=== PATIENT | female | born 1960 | race Caucasian/White ===

== ENCOUNTER 2017-11-25 09:13 | Observation (INO) | payer MEDICARE, OTHER ==
[~2017-11-25] VITALS: Ht 170.2 cm; Wt 158.8 kg
[~2017-11-25 09:13] MED LIST: ALLER CLEAR PO; ATEN100 PO; ATEN50 PO; ATOR40TA PO; BENZ100A PO; BUPR150ER PO; Bupropion Xl150 MG PO; CHOL10002 PO; CIPR500 PO; DOXA1 PO; DOXA4 PO; ENOX40I SC; Furosemide20 MG PO; GABA300 PO; HYDCHL25 PO; HYDCHL50 PO; HYDRA50 PO; IBUP200 PO; IBUP800 PO; KETO10 PO; LAMICTAL PO; LAMO100 PO; LISI20 PO; LOPE2C PO; LORA10ER PO; MULVITMIND PO; NORT25 PO; OMEP20ER PO; PRAV20 PO; PROM25; SACC250C PO; SULTRIDS PO; TRIAOIA
[2017-11-26 04:15] LABS: BASOPHILS ABSOLUTE AUTO 0.01 K/mm3 (0.00-0.23); BASOPHILS PERCENT AUTO 0 % (0-2); EOSINOPHILS PERCENT AUTO 0 % (0-6); Hematocrit 36.1 % (33.0-51.0); Hemoglobin 11.9 g/dL (11.5-16.0); IMMATURE GRAN ABSOLUTE AUTO 0.05 K/mm3 (0.00-0.10); IMMATURE GRAN PERCENT AUTO 0 % (0-1); LYMPHOCYTES ABSOLUTE AUTO 0.94 K/mm3 (0.84-5.20); LYMPHOCYTES PERCENT AUTO 8 % (21-46); MONOCYTES ABSOLUTE AUTO 0.38 K/mm3 (0.16-1.47); MONOCYTES PERCENT AUTO 3 % (4-13); Mean Corpuscular Volume 94 fL (80-100); NEUTROPHILS ABSOLUTE AUTO 10.31 K/mm3 (1.96-9.15); NEUTROPHILS PERCENT AUTO 88 % (41-73); Platelet Count 255 K/mm3 (150-400); RDW Coefficient Variation 13.1 % (11.7-14.2); RDW Standard Deviation 45.1 fL (35.1-46.3); Red Blood Cell Count 3.84 M/mm3 (3.80-5.20); White Blood Cell Count 11.69 K/mm3 (4.00-11.30)
[2017-11-26 04:35] LABS: Bun/Creatinine Ratio 22.4 (12.0-20.0); Calcium, Blood 8.4 mg/dL (8.5-10.1); Creatinine, Blood 1.07 mg/dL (0.40-1.00)
[2017-11-27] MEDS ORDERED: TRAM50 PO (10:32)
[2017-11-27] MEDS ORDERED: CYCL10 PO (12:43)
== END 2017-11-27 13:45 | disposition home health service (06) ==
LOC: SURS 09:13
PROVIDERS: Family Medicine; Podiatrist Foot & Ankle Surgery
PROC: 0Y6N0ZF Detachment at Left Foot, Partial 5th Ray, Open Approach (ICD-10-PCS; principal; 2017-11-25 11:00)
PROC: 0Y6N0ZD Detachment at Left Foot, Partial 4th Ray, Open Approach (ICD-10-PCS; principal; 2017-11-25 11:00)
PROC: 0Y6N0ZC Detachment at Left Foot, Partial 3rd Ray, Open Approach (ICD-10-PCS; principal; 2017-11-25 11:00)
PROC: 0Y6N0ZB Detachment at Left Foot, Partial 2nd Ray, Open Approach (ICD-10-PCS; principal; 2017-11-25 11:00)
DX: L97.529 Non-pressure chronic ulcer of other part of left foot with unspecified severity (principal); L03.116 Cellulitis of left lower limb; M86.8X7 Other osteomyelitis, ankle and foot; I10 Essential (primary) hypertension; E66.01 Morbid (severe) obesity due to excess calories; Z88.5 Allergy status to narcotic agent; Z79.899 Other long term (current) drug therapy; Z68.43 Body mass index [BMI] 50.0-59.9, adult
CPT/HCPCS: 36415; 80048; 85025; 87081; 88307; 88311; 94762; 97110; 97162; 97165; 97530; 97535; C9113; G0378; G8978; G8979; G8987; G8988; G8989; J0690; J1100; J1885; J2250; J2405; J3010; J7120; Q0163

== ENCOUNTER → 2017-12-04 | Outpatient (CLI) | payer MEDICARE, OTHER ==
[~2017-12-04] MED LIST changes: +CYCL10 PO; +TRAM50 PO
== END ==
LOC: LAB 11:58
DX: M86.179 Other acute osteomyelitis, unspecified ankle and foot (principal)
CPT/HCPCS: 87070; 87075; 87077; 87186; 87205